=== PATIENT | male | born 2000 | race Two or more races ===

== ENCOUNTER 2023-06-24 23:40 | Emergency (ER) | payer MEDICAID ==
[~2023-06-24] VITALS: Ht 175.3 cm; Wt 100.0 kg
[2023-06-24 23:40] VITALS: BP 157/93; PULSE 105; RESP 24; O2SAT 98
[2023-06-25] MEDS ORDERED: CLIN300C70 PO (03:33)
[2023-06-25] MEDS: cefTRIAXone SOD 1,000 MG VL IM ONE (03:37)
[2023-06-25] MEDS ORDERED: BACIOIN15 TOP (03:42)
== END 2023-06-25 03:47 | disposition home or self-care (01) ==
LOC: ER 23:40
DX: S50.812A Abrasion of left forearm, initial encounter (principal); S70.212A Abrasion, left hip, initial encounter; J45.909 Unspecified asthma, uncomplicated; X58.XXXA Exposure to other specified factors, initial encounter; Y93.39 Activity, other involving climbing, rappelling and jumping off; Y92.89 Other specified places as the place of occurrence of the external cause; Y99.8 Other external cause status
CPT/HCPCS: 96372; 99283; J0696